=== PATIENT | female | born 1980 | race Caucasian/White ===

== ENCOUNTER 2022-09-08 07:56 | Inpatient (IN) | payer MEDICAID ==
[~2022-09-08] VITALS: Ht 154.9 cm; Wt 49.9 kg
[2022-09-08 08:48] LABS: BASOPHILS % (AUTO) 0.8 % (0.0-2.0); EOSINOPHILS % (AUTO) 1.2 % (1.0-6.0); HEMATOCRIT 44.6 % (36-46); HEMOGLOBIN 14.5 g/dL (12.0-16.0); LYMPHOCYTES # (AUTO) 3.2 K/uL (1.0-4.8); LYMPHOCYTES % (AUTO) 18.5 % (22.0-44.0); MEAN CORPUSCULAR HEMOGLOBIN 29.3 pg (26.0-34.0); MEAN CORPUSCULAR HGB CONC 32.6 G/dL (31.0-37.0); MEAN CORPUSCULAR VOLUME 90 fL (80-100); MONOCYTES # (AUTO) 1.2 K/uL (0.1-1.0); MONOCYTES % (AUTO) 6.8 % (2.0-9.0); NEUTROPHILS # (AUTO) 12.6 K/uL (1.8-7.7); NEUTROPHILS % (AUTO) 72.7 % (40.0-70.0); PLATELET COUNT (AUTO) 383 K/uL (150-450); RED BLOOD CELL COUNT(AUTO) 4.97 MIL/uL (4.00-5.20); RED CELL DISTRIBUTION WIDTH 14.9 % (11.5-14.5)
[2022-09-08 08:56] LABS: ANION GAP 9 mmol/L (8-16); CALCIUM, TOTAL 8.6 mg/dL (8.8-10.5); CARBON DIOXIDE 26 mmol/L (22-29); CHLORIDE 98 mmol/L (98-107); CREATININE 0.69 mg/dL (0.60-1.30); GLOMERULAR FILTR. RATE CALC > 60 mL/min (>60); GLUCOSE,RANDOM 88 mg/dL (70-110); SODIUM SERUM 133 mmol/L (136-145)
[2022-09-08 09:02] LABS: ALANINE AMINOTRANSFERASE 16 U/L (12-78); ALBUMIN 3.4 g/dL (3.4-5.0); ALKALINE PHOSPHATASE 65 U/L (46-116); ASPARTATE AMINOTRANSFERASE 12 U/L (15-37); BILIRUBIN,TOTAL 0.3 mg/dL (0.1-1.0); TOTAL PROTEIN, SERUM 6.4 g/dL (6.4-8.2)
[2022-09-08] MEDS ORDERED: LORazepam 2 MG/ML VIAL IM ONE (09:15)
[2022-09-08] MEDS ORDERED: HALOPERIDOL LACTATE 5 MG/ML VIAL IM ONE (09:15)
[2022-09-08] MEDS ORDERED: DiphenhydrAMINE HCL 50 MG/ML VIAL IM ONE (09:15)
[2022-09-08] MEDS: OLANZapine 5 MG TABLET PO SCH ×3 (11:12→19:13)
[2022-09-08 13:24] LABS: COVID AG,FIA SOURCE NASAL SWAB
[2022-09-08 23:00] VITALS: BP 104/66
[2022-09-09 08:48] VITALS: BP 107/76
[2022-09-09] MEDS ORDERED: LORazepam 2 MG/ML VIAL ONE (12:05)
[2022-09-09] MEDS ORDERED: HALOPERIDOL LACTATE 5 MG/ML VIAL ONE (12:05)
[2022-09-09] MEDS ORDERED: DiphenhydrAMINE HCL 50 MG/ML VIAL ONE (12:06)
[2022-09-09] MEDS ORDERED: LORazepam 2 MG/ML VIAL IM ONE (13:00)
[2022-09-09] MEDS ORDERED: DiphenhydrAMINE HCL 50 MG/ML VIAL IM ONE (13:00)
[2022-09-09] MEDS ORDERED: HALOPERIDOL LACTATE 5 MG/ML VIAL IM ONE (13:00)
[2022-09-09] MEDS: OLANZapine 5 MG TABLET PO SCH ×2 (16:35)
[2022-09-09 20:21] VITALS: BP 108/71
[2022-09-10] MEDS: OLANZapine 5 MG TABLET PO SCH ×2 (08:06→16:17)
[2022-09-10] MEDS: LORazepam 2 MG TABLET PO PRN ×2 (14:53→20:22)
[2022-09-10 20:06] VITALS: BP 109/72
[2022-09-11 08:11] LABS: AMPHET/METH SCREEN,URINE NEGATIVE (NEGATIVE); BARBITURATE SCREEN, URINE NEGATIVE (NEGATIVE); BENZODIAZEPINES SCREEN,URINE NEGATIVE (NEGATIVE); CANNABINOID SCREEN,URINE NEGATIVE (NEGATIVE); COCAINE SCREEN,URINE NEGATIVE (NEGATIVE); METHADONE SCREEN, URINE NEGATIVE (NEGATIVE); OPIATE SCREEN,URINE NEGATIVE (NEGATIVE); PHENCYCLIDINE SCREEN,URINE NEGATIVE (NEGATIVE)
[2022-09-11 08:13] LABS: EOSINOPHILS % (AUTO) 2.9 % (1.0-6.0); HEMATOCRIT 46.2 % (36-46); HEMOGLOBIN 15.1 g/dL (12.0-16.0); LYMPHOCYTES % (AUTO) 28.2 % (22.0-44.0); MEAN CORPUSCULAR HEMOGLOBIN 29.4 pg (26.0-34.0); MEAN CORPUSCULAR HGB CONC 32.6 G/dL (31.0-37.0); MEAN CORPUSCULAR VOLUME 90 fL (80-100); MONOCYTES % (AUTO) 9.5 % (2.0-9.0); NEUTROPHILS # (AUTO) 6.1 K/uL (1.8-7.7); NEUTROPHILS % (AUTO) 58.4 % (40.0-70.0); PLATELET COUNT (AUTO) 349 K/uL (150-450); RED BLOOD CELL COUNT(AUTO) 5.12 MIL/uL (4.00-5.20); RED CELL DISTRIBUTION WIDTH 14.9 % (11.5-14.5)
[2022-09-11] MEDS: OLANZapine 5 MG TABLET PO SCH ×2 (08:27→17:14)
[2022-09-11 08:44] VITALS: BP 114/68
[2022-09-11 08:49] VITALS: BP 106/69
[2022-09-11] MEDS: LORazepam 2 MG TABLET PO PRN (09:52)
[2022-09-11 21:03] VITALS: BP 100/64
[2022-09-12 08:20] VITALS: BP 104/67
[2022-09-12] MEDS ORDERED: HALOPERIDOL LACTATE 5 MG/ML VIAL ONE (08:21)
[2022-09-12] MEDS ORDERED: LORazepam 2 MG/ML VIAL ONE (08:21)
[2022-09-12] MEDS ORDERED: DiphenhydrAMINE HCL 50 MG/ML VIAL ONE (08:21)
[2022-09-12] MEDS ORDERED: LORazepam 2 MG/ML VIAL IM ONE (08:45)
[2022-09-12] MEDS ORDERED: HALOPERIDOL LACTATE 5 MG/ML VIAL IM ONE (08:45)
[2022-09-12] MEDS ORDERED: DiphenhydrAMINE HCL 50 MG/ML VIAL IM ONE (08:45)
[2022-09-12] MEDS: OLANZapine 5 MG TABLET PO SCH ×2 (09:00→16:30)
[2022-09-12] MEDS: OLANZapine 5 MG TABLET PO PRN (13:39)
[2022-09-12] MEDS: LORazepam 2 MG TABLET PO PRN ×2 (13:39→19:49)
[2022-09-12 20:59] VITALS: BP 108/72
[2022-09-13] MEDS: OLANZapine 5 MG TABLET PO SCH ×2 (08:12→16:03)
[2022-09-13 09:53] VITALS: BP 112/77
[2022-09-13] MEDS: NICOTINE 7 MG/24 HOUR PATCH TD SCH (10:24)
[2022-09-13] MEDS: LORazepam 2 MG TABLET PO PRN (17:11)
[2022-09-13 22:39] VITALS: BP 120/80
[2022-09-14 08:10] VITALS: BP 100/63
[2022-09-14] MEDS: OLANZapine 5 MG TABLET PO SCH ×2 (08:22→16:55)
[2022-09-14] MEDS: NICOTINE 7 MG/24 HOUR PATCH TD SCH (08:23)
[2022-09-14] MEDS: LORazepam 2 MG TABLET PO PRN ×2 (08:23→13:41)
[2022-09-14] MEDS: OLANZapine 5 MG TABLET PO PRN (09:59)
[2022-09-14 20:09] VITALS: BP 107/69
[2022-09-15] MEDS: NICOTINE 7 MG/24 HOUR PATCH TD SCH (08:50)
[2022-09-15] MEDS: OLANZapine 5 MG TABLET PO SCH ×2 (08:50→16:03)
[2022-09-15] MEDS: LORazepam 2 MG TABLET PO PRN ×3 (08:50→18:47)
[2022-09-15 08:53] VITALS: BP 115/67
[2022-09-15] MEDS: OLANZapine 5 MG TABLET PO PRN (10:59)
[2022-09-15] MEDS: ZOLPIDEM TARTRATE 10 MG TABLET PO PRN (20:19)
[2022-09-15 22:43] VITALS: BP 115/67
[2022-09-16] MEDS: NICOTINE 7 MG/24 HOUR PATCH TD SCH (08:18)
[2022-09-16] MEDS: OLANZapine 5 MG TABLET PO SCH ×2 (08:18→16:11)
[2022-09-16] MEDS: LORazepam 2 MG TABLET PO PRN (08:18)
[2022-09-16 08:24] VITALS: BP 106/74
[2022-09-16] MEDS: OLANZapine 5 MG TABLET PO PRN (12:38)
[2022-09-16] MEDS: HydrOXYzine PAMOATE 50 MG CAPSULE PO PRN (17:14)
[2022-09-16 20:14] VITALS: BP 112/61
[2022-09-16] MEDS ORDERED: ONDANSETRON HCL 4 MG TABLET PO PRN (21:15)
[2022-09-16] MEDS ORDERED: PETROLATUM,WHITE 28 GM JELLY TP PRN (21:15)
[2022-09-16] MEDS ORDERED: MAG HYDROX/AL HYDROX/SIMETH ES 30 ML SUSPENSION UDCUP PO PRN (21:15)
[2022-09-16] MEDS ORDERED: IBUPROFEN 400 MG TABLET PO PRN (21:15)
[2022-09-16] MEDS ORDERED: MAGNESIUM HYDROXIDE SUSPENSION 30 ML UDCUP PO PRN (21:15)
[2022-09-16] MEDS ORDERED: ALBUTEROL SULFATE HFA 90 MCG/PUFF 8 GM INHALER IH PRN (21:15)
[2022-09-16] MEDS ORDERED: LOPERAMIDE HCL 2 MG CAPSULE PO PRN (21:15)
[2022-09-16] MEDS ORDERED: DOCUSATE SODIUM 100 MG CAPSULE PO PRN (21:15)
[2022-09-16] MEDS ORDERED: CloNIDine HCL 0.1 MG TABLET PO PRN (21:15)
[2022-09-16] MEDS ORDERED: GuaiFENesin/D-METHORPHAN [SUGAR-FREE] 200-20MG/10 ML SYRUP UDCUP PO PRN (21:15)
[2022-09-16] MEDS: ACETAMINOPHEN 325 MG TABLET PO PRN (22:14)
[2022-09-17] MEDS: HydrOXYzine PAMOATE 50 MG CAPSULE PO PRN ×2 (08:22→16:01)
[2022-09-17] MEDS: OLANZapine 5 MG TABLET PO SCH ×2 (08:22→16:01)
[2022-09-17] MEDS: NICOTINE 7 MG/24 HOUR PATCH TD SCH (08:22)
[2022-09-17 08:41] VITALS: BP 112/62
[2022-09-17] MEDS: ACETAMINOPHEN 325 MG TABLET PO PRN (10:04)
[2022-09-17] MEDS: OLANZapine 5 MG TABLET PO PRN ×2 (13:05→20:35)
[2022-09-17 16:25] VITALS: BP 119/74
[2022-09-17] MEDS: ZOLPIDEM TARTRATE 10 MG TABLET PO PRN (20:35)
[2022-09-18] MEDS: ACETAMINOPHEN 325 MG TABLET PO PRN (03:00)
[2022-09-18] MEDS ORDERED: PERMETHRIN 1% 60 ML LOTION TP ONE (03:30)
[2022-09-18] MEDS: NICOTINE 7 MG/24 HOUR PATCH TD SCH (08:43)
[2022-09-18] MEDS: OLANZapine 5 MG TABLET PO SCH ×2 (08:43→16:36)
[2022-09-18 08:46] VITALS: BP 123/78
[2022-09-18] MEDS: HydrOXYzine PAMOATE 50 MG CAPSULE PO PRN ×2 (10:32→20:06)
[2022-09-18 20:26] VITALS: BP 112/71
[2022-09-19] MEDS: OLANZapine 5 MG TABLET PO SCH ×2 (08:14→16:20)
[2022-09-19] MEDS: HydrOXYzine PAMOATE 50 MG CAPSULE PO PRN ×3 (08:14→20:50)
[2022-09-19] MEDS: NICOTINE 7 MG/24 HOUR PATCH TD SCH (08:15)
[2022-09-19 08:42] VITALS: BP 110/72
[2022-09-19] MEDS: OLANZapine 5 MG TABLET PO PRN ×2 (10:00→20:50)
[2022-09-20 08:19] VITALS: BP 109/66
[2022-09-20] MEDS: OLANZapine 5 MG TABLET PO SCH ×2 (08:32→17:03)
[2022-09-20] MEDS: HydrOXYzine PAMOATE 50 MG CAPSULE PO PRN ×2 (08:32→15:20)
[2022-09-20] MEDS: NICOTINE 7 MG/24 HOUR PATCH TD SCH (08:32)
[2022-09-20] MEDS: OLANZapine 5 MG TABLET PO PRN ×2 (13:31→20:25)
[2022-09-21 02:40] VITALS: BP 139/79
[2022-09-21] MEDS: HydrOXYzine PAMOATE 50 MG CAPSULE PO PRN ×2 (02:44→16:14)
[2022-09-21] MEDS: OLANZapine 5 MG TABLET PO PRN ×2 (02:44→19:53)
[2022-09-21] MEDS: ACETAMINOPHEN 325 MG TABLET PO PRN ×2 (02:45→20:30)
[2022-09-21 08:11] VITALS: BP 117/55
[2022-09-21] MEDS: OLANZapine 5 MG TABLET PO SCH ×2 (08:24→16:14)
[2022-09-21] MEDS: NICOTINE 7 MG/24 HOUR PATCH TD SCH (08:24)
[2022-09-21 20:03] VITALS: BP 107/74
[2022-09-22] MEDS ORDERED: PERMETHRIN 1% 60 ML LOTION TP ONE (07:45)
[2022-09-22] MEDS: HydrOXYzine PAMOATE 50 MG CAPSULE PO PRN (08:09)
[2022-09-22] MEDS: OLANZapine 5 MG TABLET PO SCH ×2 (08:09→16:51)
[2022-09-22] MEDS: NICOTINE 7 MG/24 HOUR PATCH TD SCH (08:10)
[2022-09-22 11:37] VITALS: BP 106/69
[2022-09-22 21:05] VITALS: BP 114/71
[2022-09-22] MEDS: OLANZapine 5 MG TABLET PO PRN (21:53)
[2022-09-23 08:32] VITALS: BP 110/73
[2022-09-23] MEDS: OLANZapine 5 MG TABLET PO SCH ×2 (09:13→17:10)
[2022-09-23] MEDS: NICOTINE 7 MG/24 HOUR PATCH TD SCH (09:14)
[2022-09-23] MEDS: HydrOXYzine PAMOATE 50 MG CAPSULE PO PRN (09:22)
[2022-09-23] MEDS ORDERED: PERMETHRIN 1% 60 ML LOTION TP ONE (12:15)
[2022-09-23] MEDS ORDERED: IVERMECTIN 3 MG TABLET PO ONE (13:30)
[2022-09-23] MEDS ORDERED: HALOPERIDOL LACTATE 5 MG/ML VIAL ONE (13:55)
[2022-09-23] MEDS ORDERED: DiphenhydrAMINE HCL 50 MG/ML VIAL ONE (13:55)
[2022-09-23] MEDS ORDERED: LORazepam 2 MG/ML VIAL ONE (13:55)
[2022-09-23] MEDS ORDERED: LORazepam 2 MG/ML VIAL IM ONE (14:15)
[2022-09-23] MEDS ORDERED: DiphenhydrAMINE HCL 50 MG/ML VIAL IM ONE (14:15)
[2022-09-23] MEDS ORDERED: HALOPERIDOL LACTATE 5 MG/ML VIAL IM ONE (14:15)
[2022-09-23 20:57] VITALS: BP 113/75
[2022-09-24] MEDS: NICOTINE 7 MG/24 HOUR PATCH TD SCH (10:34)
[2022-09-24] MEDS: OLANZapine 5 MG TABLET PO SCH ×2 (10:34→16:10)
[2022-09-24] MEDS: HydrOXYzine PAMOATE 50 MG CAPSULE PO PRN ×2 (11:20→19:29)
[2022-09-24] MEDS: OLANZapine 5 MG TABLET PO PRN (19:32)
[2022-09-25 08:31] VITALS: BP 110/69
[2022-09-25] MEDS: NICOTINE 7 MG/24 HOUR PATCH TD SCH (08:31)
[2022-09-25] MEDS: HydrOXYzine PAMOATE 50 MG CAPSULE PO PRN (08:31)
[2022-09-25] MEDS: OLANZapine 5 MG TABLET PO SCH ×2 (08:31→21:11)
[2022-09-25] MEDS ORDERED: LORazepam 2 MG/ML VIAL ONE (11:19)
[2022-09-25] MEDS ORDERED: ChlorproMAZINE HCL 50 MG/2 ML AMP ONE (11:20)
[2022-09-25] MEDS ORDERED: DiphenhydrAMINE HCL 50 MG/ML VIAL ONE (11:21)
[2022-09-25] MEDS ORDERED: DiphenhydrAMINE HCL 50 MG/ML VIAL IM ONE (14:00)
[2022-09-25] MEDS ORDERED: LORazepam 2 MG/ML VIAL IM ONE (14:00)
[2022-09-25] MEDS ORDERED: ChlorproMAZINE HCL 50 MG/2 ML AMP IM ONE (14:00)
[2022-09-25 20:00] VITALS: BP 116/74
[2022-09-26] MEDS: OLANZapine 5 MG TABLET PO SCH ×2 (08:18→20:31)
[2022-09-26] MEDS: HydrOXYzine PAMOATE 50 MG CAPSULE PO PRN (08:19)
[2022-09-26] MEDS: NICOTINE 7 MG/24 HOUR PATCH TD SCH (08:20)
[2022-09-26] MEDS: OLANZapine 5 MG TABLET PO PRN (11:23)
[2022-09-26] MEDS ORDERED: DiphenhydrAMINE HCL 50 MG/ML VIAL ONE (13:32)
[2022-09-26] MEDS ORDERED: ChlorproMAZINE HCL 50 MG/2 ML AMP ONE (13:33)
[2022-09-26] MEDS ORDERED: LORazepam 2 MG/ML VIAL ONE (13:33)
[2022-09-26] MEDS ORDERED: LORazepam 2 MG/ML VIAL IM ONE (13:45)
[2022-09-26] MEDS ORDERED: DiphenhydrAMINE HCL 50 MG/ML VIAL IM ONE (13:45)
[2022-09-26] MEDS ORDERED: ChlorproMAZINE HCL 50 MG/2 ML AMP IM ONE (13:45)
[2022-09-27] MEDS: NICOTINE 7 MG/24 HOUR PATCH TD SCH (08:02)
[2022-09-27] MEDS: HydrOXYzine PAMOATE 50 MG CAPSULE PO PRN (08:03)
[2022-09-27] MEDS: OLANZapine 5 MG TABLET PO SCH ×2 (08:03→20:12)
[2022-09-27 08:31] VITALS: BP 116/74
[2022-09-27 20:00] VITALS: BP 118/74
[2022-09-28] MEDS: OLANZapine 5 MG TABLET PO SCH ×2 (08:28→20:37)
[2022-09-28] MEDS: NICOTINE 7 MG/24 HOUR PATCH TD SCH (08:29)
[2022-09-28] MEDS: OLANZapine 5 MG TABLET PO PRN (18:33)
[2022-09-28 20:43] VITALS: BP 104/71
[2022-09-28 20:47] VITALS: BP 103/68
[2022-09-29] MEDS: NICOTINE 7 MG/24 HOUR PATCH TD SCH (08:23)
[2022-09-29] MEDS: OLANZapine 5 MG TABLET PO SCH ×2 (08:23→21:08)
[2022-09-29 08:30] VITALS: BP 110/69
[2022-09-29] MEDS: OLANZapine 5 MG TABLET PO PRN (17:45)
[2022-09-29 22:50] VITALS: BP 113/70
[2022-09-30] MEDS: HydrOXYzine PAMOATE 50 MG CAPSULE PO PRN ×2 (08:21→19:12)
[2022-09-30] MEDS: OLANZapine 5 MG TABLET PO SCH ×2 (08:21→20:25)
[2022-09-30] MEDS: NICOTINE 7 MG/24 HOUR PATCH TD SCH (08:22)
[2022-09-30 20:03] VITALS: BP 105/71
[2022-09-30] MEDS ORDERED: QUEtiapine FUMARATE 100 MG TABLET PO ONE (21:15)
[2022-10-01] MEDS: OLANZapine 5 MG TABLET PO SCH ×2 (08:16→20:05)
[2022-10-01] MEDS: HydrOXYzine PAMOATE 50 MG CAPSULE PO PRN ×2 (08:16→17:58)
[2022-10-01] MEDS: NICOTINE 7 MG/24 HOUR PATCH TD SCH (08:16)
[2022-10-01 08:27] VITALS: BP 102/72
[2022-10-01 21:32] VITALS: BP 115/80
[2022-10-02] MEDS: OLANZapine 5 MG TABLET PO SCH ×2 (09:07→20:09)
[2022-10-02] MEDS: HydrOXYzine PAMOATE 50 MG CAPSULE PO PRN ×2 (09:08→16:01)
[2022-10-02] MEDS: NICOTINE 7 MG/24 HOUR PATCH TD SCH (09:09)
[2022-10-02 20:03] VITALS: BP 109/74
[2022-10-03] MEDS: HydrOXYzine PAMOATE 50 MG CAPSULE PO PRN ×2 (08:15→21:56)
[2022-10-03] MEDS: OLANZapine 5 MG TABLET PO SCH ×2 (08:15→20:23)
[2022-10-03] MEDS: NICOTINE 7 MG/24 HOUR PATCH TD SCH (08:17)
[2022-10-03 08:45] VITALS: BP 112/74
[2022-10-03 20:38] VITALS: BP 103/71
[2022-10-03] MEDS: OLANZapine 5 MG TABLET PO PRN (21:56)
[2022-10-04 08:36] VITALS: BP 118/74
[2022-10-04] MEDS: OLANZapine 5 MG TABLET PO SCH ×2 (08:40→20:03)
[2022-10-04] MEDS: NICOTINE 7 MG/24 HOUR PATCH TD SCH (08:41)
[2022-10-04] MEDS: HydrOXYzine PAMOATE 50 MG CAPSULE PO PRN ×2 (08:41→16:46)
[2022-10-04] MEDS: OLANZapine 5 MG TABLET PO PRN (13:12)
[2022-10-05] MEDS: OLANZapine 5 MG TABLET PO SCH ×2 (08:39→20:16)
[2022-10-05] MEDS: NICOTINE 7 MG/24 HOUR PATCH TD SCH (08:40)
[2022-10-05 09:33] VITALS: BP 100/63
[2022-10-05] MEDS: HydrOXYzine PAMOATE 50 MG CAPSULE PO PRN (13:45)
[2022-10-05 20:21] VITALS: BP 107/69
[2022-10-06] MEDS: NICOTINE 7 MG/24 HOUR PATCH TD SCH (08:19)
[2022-10-06] MEDS: OLANZapine 5 MG TABLET PO SCH ×2 (08:24→20:31)
[2022-10-06 08:36] VITALS: BP 101/64
[2022-10-06] MEDS: HydrOXYzine PAMOATE 50 MG CAPSULE PO PRN (13:43)
[2022-10-06] MEDS: OLANZapine 5 MG TABLET PO PRN (17:32)
[2022-10-06 21:09] VITALS: BP 108/73
[2022-10-07] MEDS: OLANZapine 5 MG TABLET PO SCH ×2 (08:05→20:06)
[2022-10-07] MEDS: HydrOXYzine PAMOATE 50 MG CAPSULE PO PRN ×2 (08:05→16:03)
[2022-10-07] MEDS: NICOTINE 7 MG/24 HOUR PATCH TD SCH (08:06)
[2022-10-07 08:14] VITALS: BP 104/66
[2022-10-07] MEDS: ACETAMINOPHEN 325 MG TABLET PO PRN (11:57)
[2022-10-07] MEDS: OLANZapine 5 MG TABLET PO PRN (16:03)
[2022-10-07 20:11] VITALS: BP 107/66
[2022-10-08 04:17] LABS: GLUCOMETER DEV NAME(LOC) POC.BV
[2022-10-08] MEDS: NICOTINE 7 MG/24 HOUR PATCH TD SCH (08:00)
[2022-10-08] MEDS: OLANZapine 5 MG TABLET PO SCH (08:00)
[2022-10-08 08:19] VITALS: BP 104/66
[2022-10-08] MEDS ORDERED: HYDR50CA7 PO (17:20)
[2022-10-08] MEDS ORDERED: OLAN5TAB52 PO (17:20)
== END 2022-10-08 08:55 | disposition home or self-care (01) | DRG 750 ==
LOC: EMS 07:56 → 3EI 21:53 → B3A 21:53 → UNDOADMIN 21:53 → B3A 09-14 18:06
PROVIDERS: ADMIT Psychiatry & Neurology Child & Adolescent Psychiatry; ATTEND Psychiatry & Neurology Child & Adolescent Psychiatry
DX: F25.1 Schizoaffective disorder, depressive type (principal); E44.0 Moderate protein-calorie malnutrition; R45.851 Suicidal ideations; E87.1 Hypo-osmolality and hyponatremia; B85.2 Pediculosis, unspecified; D72.829 Elevated white blood cell count, unspecified; F10.10 Alcohol abuse, uncomplicated; Z20.822 Contact with and (suspected) exposure to COVID-19; F11.10 Opioid abuse, uncomplicated; Z68.20 Body mass index [BMI] 20.0-20.9, adult
CPT/HCPCS: 80053; 80307; 85025; 99291; G0480; J1200; J1630; J2060; J3230